=== PATIENT | female | born 1985 | race Caucasian/White ===

== ENCOUNTER 2019-06-08 20:28 | Emergency (ER) | payer MEDICAID ==
[~2019-06-08] VITALS: Ht 162.6 cm; Wt 66.8 kg
[2019-06-08 21:22] VITALS: BP 117/77
== END 2019-06-08 23:13 | disposition left against medical advice (07) ==
LOC: ER 20:28
DX: R42 Dizziness and giddiness (principal); Z53.21 Procedure and treatment not carried out due to patient leaving prior to being seen by health care provider